=== PATIENT | male | born 1995 | race Caucasian/White ===

== ENCOUNTER 2017-06-20 14:51 | Emergency (ER) | payer OTHER ==
[~2017-06-20] VITALS: Ht 170.2 cm; Wt 75.1 kg
[~2017-06-20 14:51] MED LIST: BACTROBAN OINTM22 GM TP; FLUTICASONE P15.8 ML BOTH NARES; MOTRIN800 MG PO; NAPROXEN500 MG PO; NO HOME MEDS; NORCO 7.5/321 TABLET PO; PERCOCET 5/31 TABLET PO; TESSALON PERLE100 MG PO; VIBRAMYCIN100 MG PO
[2017-06-20] MEDS ORDERED: MOTRIN600 MG PO (18:07)
[2017-06-20 18:46] VITALS: BP 125/78
== END 2017-06-20 18:48 | disposition home or self-care (01) ==
LOC: EME 14:51
DX: R55 Syncope and collapse (principal); S93.402A Sprain of unspecified ligament of left ankle, initial encounter; W19.XXXA Unspecified fall, initial encounter; Y93.01 Activity, walking, marching and hiking; Y92.828 Other wilderness area as the place of occurrence of the external cause; F17.200 Nicotine dependence, unspecified, uncomplicated
CPT/HCPCS: 70450; 73610; 93005; 99281; 99284

== ENCOUNTER 2018-03-28 22:02 | Emergency (ER) | payer OTHER ==
[~2018-03-28] VITALS: Ht 170.2 cm; Wt 60.6 kg
[~2018-03-28 22:02] MED LIST changes: +MOTRIN600 MG PO
[2018-03-28 22:48] LABS: HEMATOCRIT 43.5 % (38.0-50.0); HEMOGLOBIN 14.8 G/DL (12.5-16.6); MCH 29.3 PG (29.0-34.0); MCV 86.1 FL (86-99); PLATELET COUNT 268 K/uL (156-360); RBC DIS.WIDTH-CV 13.1 % (11.8-14.6); RBC DIS.WIDTH-SD 40.6 % (39-53); RED BLOOD COUNT 5.05 M/uL (4.00-5.50); WHITE BLOOD COUNT 11.5 K/uL (4.1-10.2)
[2018-03-28 22:57] LABS: ALBUMIN 5.1 g/dL (3.2-4.8)
[2018-03-28 22:58] LABS: CHLORIDE 100 mEq/L (99-109); POTASSIUM 4.3 mEq/L (3.7-5.4); SODIUM 138 mEq/L (136-147)
[2018-03-28 23:00] LABS: GLUCOSE 99 mg/dL (70-99)
[2018-03-28 23:02] LABS: TOTAL BILIRUBIN 1.1 mg/dL (0.0-1.0)
[2018-03-28 23:03] LABS: ALKALINE PHOSPHATASE 96 IU/L (3-129)
[2018-03-28 23:04] LABS: GFR ESTIMATE (CALCULATED) > 59 mL/min/ (58.99-99999)
[2018-03-28 23:05] LABS: AST (GOT) 20 IU/L (2-34); UREA NITROGEN (BUN) 16 mg/dL (9-23)
[2018-03-28 23:06] LABS: ALT (GPT) 15 IU/L (3-49)
[2018-03-28 23:51] LABS: APPEARANCE SL.HAZY ((CLEAR)); BILIRUBIN NEGATIVE; BLOOD NEGATIVE; COLOR YELLOW ((YELLOW)); GLUCOSE (STRIP) NEGATIVE; KETONES 20; LEUKOCYTES NEGATIVE; NITRITE NEGATIVE; PROTEIN (STRIP) NEGATIVE; SPECIFIC GRAVITY 1.025 (1.000-1.030)
[2018-03-28 23:56] LABS: BACTERIA RARE /HPF; EPITHELIAL CELLS RARE /HPF; MUCUS 4+ /LPF; RED BLOOD CELLS 0-5 /HPF (0-5); UCUL ADDED? NO; WHITE BLOOD CELLS 0-5 /HPF (0-5)
[2018-03-29] MEDS ORDERED: COLACE100 MG PO (00:53)
[2018-03-29] MEDS ORDERED: ZOFRAN ODT4 MG PO (00:53)
[2018-03-29] MEDS ORDERED: BENTYL10 MG PO (00:53)
[2018-03-29 01:02] VITALS: BP 147/85
== END 2018-03-29 01:03 | disposition home or self-care (01) ==
LOC: EME 22:02
DX: R10.9 Unspecified abdominal pain (principal); R11.2 Nausea with vomiting, unspecified; F17.200 Nicotine dependence, unspecified, uncomplicated; Z79.51 Long term (current) use of inhaled steroids
CPT/HCPCS: 74018; 80053; 81003; 85027; 99281; 99284

== ENCOUNTER 2018-05-01 19:15 | Emergency (ER) | payer OTHER ==
[~2018-05-01] VITALS: Ht 165.1 cm; Wt 56.6 kg
[~2018-05-01 19:15] MED LIST changes: +BENTYL10 MG PO; +COLACE100 MG PO; +ZOFRAN ODT4 MG PO
[2018-05-01 20:46] VITALS: BP 168/86
== END 2018-05-01 20:52 ==
LOC: EME 19:15
DX: S30.851A Superficial foreign body of abdominal wall, initial encounter (principal); Y35.493A Legal intervention involving other sharp objects, suspect injured, initial encounter; F17.200 Nicotine dependence, unspecified, uncomplicated
CPT/HCPCS: 99281; 99282